=== PATIENT | female | born 1950 | race Caucasian/White ===

== ENCOUNTER → 2018-10-02 | Outpatient (CLI) | payer MEDICARE ==
[~2018-10-02] MED LIST: IOPAMIDOL 370 MG/ML 200 ML INFUS..BTL INJ ONE; SODIUM CHLORIDE 0.9% 50ML 50 ML ONE
[2018-10-02 10:32] LABS: BLOOD UREA NITROGEN 12 mg/dL (7-26); BUN/CREATININE RATIO 16 (6-25); CREATININE, SERUM 0.77 mg/dL (0.57-1.11); EST GLOMERULAR FILTRATION RATE > 60 ML/MIN (60-)
--- NOTE | 2018-10-02 12:14 | Diagnostic Imaging Report ---
EXAM: CT Chest WITH intravenous contrast 10/02/2018 9:37 AM INDICATION: Chest lump COMPARISON: None TECHNIQUE: Chest was scanned utilizing a multidetector helical scanner from the lung apex through the level of the adrenal glands after administration of IV contrast. Coronal and sagittal reformations were obtained. Routine protocol was performed. IV CONTRAST: 100mL Isovue 370 RADIATION DOSE: Total DLP: 523.9 mGy*cm. Dose modulation, iterative reconstruction, and/or weight based adjustment of the mA/kV was utilized to reduce the radiation dose to as low as reasonably achievable. COMPLICATIONS: None FINDINGS: LINES/ TUBES: None. LUNGS AND AIRWAYS: The central airways are patent. No focal consolidation or pulmonary edema. No suspicious pulmonary nodules. PLEURA: The pleural spaces are clear. HEART AND MEDIASTINUM: The thyroid gland appears unremarkable. No lymphadenopathy. Heart is not enlarged. No pericardial effusion. Mild atherosclerotic calcifications of the coronary arteries and thoracic aorta. UPPER ABDOMEN: Limited contrast-enhanced views of the upper abdomen. Hepatic steatosis. No focal abnormality in the partially visualized liver, spleen, and pancreatic tail. The kidneys are not visualized. The minimally visualized left adrenal gland appears normal. BONES: No acute osseous injury. No suspicious lytic or blastic lesions. T7 vertebral body hemangioma. Mild degenerative changes of the visualized spine. SOFT TISSUES: Status post right mastectomy. Surgical clips in the right chest and axilla. No focal soft tissue mass in the operative bed. IMPRESSION: No soft tissue mass in the anterior chest wall. Status post right mastectomy and axillary lymph node dissection. No soft tissue lesion in the operative bed. No suspicious pulmonary nodules. Hepatic steatosis. Coronary artery atherosclerotic calcifications. Signed by: Reed Knox MD on 10/02/2018 12:10 PM
== END ==
LOC: CT 09:27
PROVIDERS: ATTEND Internal Medicine Cardiovascular Disease
DX: R22.1 Localized swelling, mass and lump, neck (principal); K76.0 Fatty (change of) liver, not elsewhere classified; I25.10 Atherosclerotic heart disease of native coronary artery without angina pectoris; Z85.3 Personal history of malignant neoplasm of breast
CPT/HCPCS: 36415; 71260; 82565; 84520; Q9967